=== PATIENT | female | born 2000 | race Caucasian/White ===

== ENCOUNTER 2022-11-13 15:15 | Outpatient (AMB) | payer BC, SELFPAY ==
--- NOTE | 2022-11-13 16:49 | MHC.OFFWIV ---
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 Patient is starting as a physical therapy student. She needs a TB test. Physical Exam Vital Signs: Last Vital Signs Temp 98.3 F 11/13/22 16:51 Pulse 69 11/13/22 16:51 BP 98/66 11/13/22 16:51 Pulse Ox 99 11/13/22 16:51 Oxygen Delivery Method Room Air 11/13/22 16:51 Assessment & Plan Assessment & Plan (1) Screening examination for infectious disease: Code(s): Z11.9 - Encounter for screening for infectious and parasitic diseases, unspecified Plan T spot test was ordered. Will call with the results. Orders: Orders T Spot TB Today Z02.0 - Encounter for examination for admission to educational institution Coding Level of Care Code Sports/Work/School Physical Diagnoses Screening examination for infectious disease Z11.9
[2022-11-13 16:51] VITALS: BP 98/66; PULSE 69; TEMP 36.8; O2SAT 99
== END 2022-11-13 17:07 | disposition home or self-care (01) ==
PROVIDERS: PCP Family Medicine; Visit Provider Internal Medicine
DX: Z11.9 Encounter for screening for infectious and parasitic diseases, unspecified (principal)
CPT/HCPCS: 99080

== ENCOUNTER 2022-11-14 08:23 | Outpatient (REF) | payer BC, SELFPAY ==
[2022-11-17 00:44] LABS: TS Negative Control Passed; TS Panel A 0; TS Panel B 1; TS Positive Control Passed; TSpotTB Negative (Negative)
== END 2022-11-14 08:24 | disposition home or self-care (01) ==
LOC: HO.HMGCLDS 08:23
PROVIDERS: Visit Provider Internal Medicine
DX: Z02.0 Encounter for examination for admission to educational institution (principal)
CPT/HCPCS: 36415; 86481